=== PATIENT | male | born 1980 | race Caucasian/White ===

== ENCOUNTER → 2017-10-10 10:33 | Outpatient (CLI) | payer MEDICAID | END | disposition home or self-care (01) | LOC: D.US 10:33 | DX: R22.1 Localized swelling, mass and lump, neck (principal) ==

== ENCOUNTER 2017-10-12 09:37 | Emergency (ER) | payer MEDICAID | END 2017-10-12 12:08 | disposition home or self-care (01) | LOC: D.ER 09:37 | DX: L02.11 Cutaneous abscess of neck (principal); I10 Essential (primary) hypertension; Z95.0 Presence of cardiac pacemaker ==